=== PATIENT | male | born 1970 | race Caucasian/White ===

== ENCOUNTER 2019-01-04 16:28 | Emergency (ER) | payer OTHER ==
[~2019-01-04] VITALS: Ht 182.9 cm; Wt 97.5 kg
--- NOTE | 2019-01-04 16:32 | NUR ---
ED Nurse Note: Pt BIBA from the street due to ETOH, pt is from a rehab center. pt drank " a lot of whiskey", pt is asleep but easy to be awaken. answers questions appropriately. Vital signs stable at this time. Will cont to monitor.
[2019-01-04 16:42] VITALS: BP 122/74
[2019-01-04 17:17] LABS: BASOPHILS % (AUTO) 1.3 % (0.0-2.0); EOSINOPHILS % (AUTO) 1.8 % (0.0-3.0); HEMATOCRIT 43.2 % (42.0-52.0); HEMOGLOBIN 15.1 G/DL (14.2-18.0); LYMPHOCYTES % (AUTO) 34.9 % (20.0-45.0); MEAN CORPUSCULAR VOLUME 85 FL (80-99); MONOCYTES % (AUTO) 4.8 % (1.0-10.0); NEUTROPHILS % (AUTO) 57.3 % (45.0-75.0); PLATELET COUNT 298 K/UL (150-450); RED BLOOD COUNT 5.06 M/UL (4.70-6.10); RED CELL DISTRIBUTION WIDTH 10.6 % (11.6-14.8); WHITE BLOOD COUNT 6.7 K/UL (4.8-10.8)
[2019-01-04 17:28] LABS: ANION GAP 12 mmol/L (5-15); BLOOD UREA NITROGEN 13 mg/dL (7-18); CALCIUM 8.9 MG/DL (8.5-10.1); CARBON DIOXIDE 26 MMOL/L (21-32); CHLORIDE 104 MMOL/L (98-107); CREATININE 1.2 MG/DL (0.55-1.30); POTASSIUM 4.1 MMOL/L (3.5-5.1); SODIUM 142 MMOL/L (136-145)
[2019-01-04 17:39] LABS: ALANINE AMINOTRANSFERASE 27 U/L (12-78); ALBUMIN 4.3 G/DL (3.4-5.0); ALBUMIN/GLOBULIN RATIO 1.3 (1.0-2.7); ALKALINE PHOSPHATASE 94 U/L (46-116); ASPARTATE AMINO TRANSFERASE 29 U/L (15-37)
[2019-01-04 18:43] VITALS: BP 124/78
--- NOTE | 2019-01-04 19:17 | NUR ---
ED Nurse Note: Spoke with Tony at [facility] - the patient has been missing since yesterday, and according to Tony that means the pt quit the program. They will not except him back tonight, the patient will have to speak with administration, tomorrow. Addendum: 01/04/19 at 1940 by MSCHRAGE [facility]: [phone].
--- NOTE | 2019-01-04 19:35 | NUR ---
ER Nurse Note: Pt a&ox4, VSS, no signs of distress. Pt expresses pain and is asking for gabapentin; will inform ERMD. Pt arousable. Urine sent; awaiting result. Pt is pending placement. All safety measures met; will continue to montior.
--- NOTE | 2019-01-04 20:56 | NUR ---
ER Nurse Note: Pt expresssed pain and nauea; ERMD aware. Verbal orders recieved from ERMD for zofran and acetaminophen. Pt a&ox4, VSS. Meds given; tolerated well. Pt is pending placement All safety measures met; report given to MARY Summers for continuity of care.
--- NOTE | 2019-01-04 20:57 | NUR ---
ED Nurse Note: Received report from Garth /RN, Pt is coleen/andre 4. VSS, will cotinue to monitor.
--- NOTE | 2019-01-04 21:48 | Emergency Room Report ---
History of Present Illness General Chief Complaint: Alcohol Intoxication Source: Patient (Rosendo Mercado MD) Present Illness HPI 48-year-old male presents ED for evaluation. Brought in by EMS for alcohol intoxication. Found on street. Bystanders called 911. Patient states he lives in a sober living facility. Denies drug use. Denies SI or HI. Denies nausea or vomiting or abdominal pain. No other aggravating relieving factors. Denies any other associated symptoms (Rosendo Mercado MD) Allergies: Coded Allergies: No Known Allergies (Unverified , 01/04/19) Patient History Past Medical History: psych hx Past Surgical History: none Pertinent Family History: none Social History: Reports: alcohol use; Denies: smoking, drug use Immunizations: UTD Reviewed Nursing Documentation: PMH: Agreed; PSxH: Agreed (Rosendo Mercado MD) Nursing Documentation-PMH Past Medical History: No History, Except For History Of Psychiatric Problem: Yes - depression, alcohol abuse (Rosendo Mercado MD) Review of Systems All Other Systems: negative except mentioned in HPI (Rosendo Mercado MD) Physical Exam Vital Signs Date Time Temp Pulse Resp B/P (MAP) Pulse Ox O2 Delivery O2 Flow Rate FiO2 01/04/19 16:24 98.6 69 18 122/74 96 Room Air Sp02 EP Interpretation: reviewed, normal General Appearance: no apparent distress, alert, GCS 15, non-toxic Head: normocephalic, atraumatic Eyes: bilateral eye normal inspection, bilateral eye PERRL ENT: hearing grossly normal, normal pharynx, no angioedema, normal voice Neck: full range of motion, supple/symm/no masses Respiratory: chest non-tender, lungs clear, normal breath sounds, speaking full sentences Cardiovascular #1: regular rate, rhythm, no edema Cardiovascular #2: 2+ carotid (R), 2+ carotid (L), 2+ radial (R), 2+ radial (L) , 2+ dorsalis pedis (R), 2+ dorsalis pedis (L) Gastrointestinal: normal bowel sounds, non tender, soft, non-distended, no guarding, no rebound Rectal: deferred Genitourinary: normal inspection, no CVA tenderness Musculoskeletal: back normal, gait/station normal, normal range of motion, non- tender Neurologic: alert, oriented x3, responsive, motor strength/tone normal, sensory intact, speech normal Psychiatric: judgement/insight normal, memory normal, mood/affect normal, no suicidal/homicidal ideation Reflexes: 3+ bicep (R), 3+ bicep (L), 3+ tricep (R), 3+ tricep (L), 3+ knee (R) , 3+ knee (L) Skin: normal color, no rash, warm/dry, well hydrated Lymphatic: no adenopathy (Rosendo Mercado MD) Medical Decision Making Diagnostic Impression: Primary Impression: Acute alcoholic intoxication Qualified Codes: F10.929 - Alcohol use, unspecified with intoxication, unspecified Additional Impression: Suicidal ideation Labs Test 01/04/19 17:05 White Blood Count 6.7 K/UL (4.8-10.8) Red Blood Count 5.06 M/UL (4.70-6.10) Hemoglobin 15.1 G/DL (14.2-18.0) Hematocrit 43.2 % (42.0-52.0) Mean Corpuscular Volume 85 FL (80-99) Mean Corpuscular Hemoglobin 29.9 PG (27.0-31.0) Mean Corpuscular Hemoglobin Concent 35.0 G/DL (32.0-36.0) Red Cell Distribution Width 10.6 % (11.6-14.8) Platelet Count 298 K/UL (150-450) Mean Platelet Volume 6.4 FL (6.5-10.1) Neutrophils (%) (Auto) 57.3 % (45.0-75.0) Lymphocytes (%) (Auto) 34.9 % (20.0-45.0) Monocytes (%) (Auto) 4.8 % (1.0-10.0) Eosinophils (%) (Auto) 1.8 % (0.0-3.0) Basophils (%) (Auto) 1.3 % (0.0-2.0) Sodium Level 142 MMOL/L (136-145) Potassium Level 4.1 MMOL/L (3.5-5.1) Chloride Level 104 MMOL/L (98-107) Carbon Dioxide Level 26 MMOL/L (21-32) Anion Gap 12 mmol/L (5-15) Blood Urea Nitrogen 13 mg/dL (7-18) Creatinine 1.2 MG/DL (0.55-1.30) Estimat Glomerular Filtration Rate > 60 mL/min (>60) Glucose Level 83 MG/DL (74-106) Calcium Level 8.9 MG/DL (8.5-10.1) Total Bilirubin 1.0 MG/DL (0.2-1.0) Aspartate Amino Transf (AST/SGOT) 29 U/L (15-37) Alanine Aminotransferase (ALT/SGPT) 27 U/L (12-78) Alkaline Phosphatase 94 U/L (46-116) Total Protein 7.6 G/DL (6.4-8.2) Albumin 4.3 G/DL (3.4-5.0) Globulin 3.3 g/dL Albumin/Globulin Ratio 1.3 (1.0-2.7) Salicylates Level 2.8 ug/mL (2.8-20) Urine Opiates Screen Negative (NEGATIVE) Acetaminophen Level < 2 MCG/ML (10-30) Urine Barbiturates Screen Negative (NEGATIVE) Phencyclidine (PCP) Screen Negative (NEGATIVE) Urine Amphetamines Screen Negative (NEGATIVE) Urine Benzodiazepines Screen Negative (NEGATIVE) Urine Cocaine Screen Negative (NEGATIVE) Urine Marijuana (THC) Screen Negative (NEGATIVE) Serum Alcohol 130 mg/dL (Rosendo Mercado MD) ER Course Patient better but now c/o SI. Voluntary. Anniversary of patricia and her son' s . Plan to drink himself to . C/O feel ill. Requests Celexa, Gabapentin, Zofran and will give Ativan. Will repeat BAL. Treating symptoms and giving Celexa. Signed out to Dr. Vega. Labs Test 01/04/19 17:05 01/05/19 08:23 White Blood Count 6.7 K/UL (4.8-10.8) Red Blood Count 5.06 M/UL (4.70-6.10) Hemoglobin 15.1 G/DL (14.2-18.0) Hematocrit 43.2 % (42.0-52.0) Mean Corpuscular Volume 85 FL (80-99) Mean Corpuscular Hemoglobin 29.9 PG (27.0-31.0) Mean Corpuscular Hemoglobin Concent 35.0 G/DL (32.0-36.0) Red Cell Distribution Width 10.6 % (11.6-14.8) Platelet Count 298 K/UL (150-450) Mean Platelet Volume 6.4 FL (6.5-10.1) Neutrophils (%) (Auto) 57.3 % (45.0-75.0) Lymphocytes (%) (Auto) 34.9 % (20.0-45.0) Monocytes (%) (Auto) 4.8 % (1.0-10.0) Eosinophils (%) (Auto) 1.8 % (0.0-3.0) Basophils (%) (Auto) 1.3 % (0.0-2.0) Sodium Level 142 MMOL/L (136-145) Potassium Level 4.1 MMOL/L (3.5-5.1) Chloride Level 104 MMOL/L (98-107) Carbon Dioxide Level 26 MMOL/L (21-32) Anion Gap 12 mmol/L (5-15) Blood Urea Nitrogen 13 mg/dL (7-18) Creatinine 1.2 MG/DL (0.55-1.30) Estimat Glomerular Filtration Rate > 60 mL/min (>60) Glucose Level 83 MG/DL (74-106) Calcium Level 8.9 MG/DL (8.5-10.1) Total Bilirubin 1.0 MG/DL (0.2-1.0) Aspartate Amino Transf (AST/SGOT) 29 U/L (15-37) Alanine Aminotransferase (ALT/SGPT) 27 U/L (12-78) Alkaline Phosphatase 94 U/L (46-116) Total Protein 7.6 G/DL (6.4-8.2) Albumin 4.3 G/DL (3.4-5.0) Globulin 3.3 g/dL Albumin/Globulin Ratio 1.3 (1.0-2.7) Salicylates Level 2.8 ug/mL (2.8-20) Urine Opiates Screen Negative (NEGATIVE) Acetaminophen Level < 2 MCG/ML (10-30) Urine Barbiturates Screen Negative (NEGATIVE) Phencyclidine (PCP) Screen Negative (NEGATIVE) Urine Amphetamines Screen Negative (NEGATIVE) Urine Benzodiazepines Screen Negative (NEGATIVE) Urine Cocaine Screen Negative (NEGATIVE) Urine Marijuana (THC) Screen Negative (NEGATIVE) Serum Alcohol < 3 mg/dL (El Hastings MD) Last Vital Signs Date Time Temp Pulse Resp B/P (MAP) Pulse Ox O2 Delivery O2 Flow Rate FiO2 01/04/19 18:43 98.6 87 20 124/78 96 Room Air (Rosendo Mercado MD) Last Vital Signs Date Time Temp Pulse Resp B/P (MAP) Pulse Ox O2 Delivery O2 Flow Rate FiO2 01/05/19 14:11 98.7 65 18 105/91 100 Room Air Status: improved (El Hastings MD) Disposition: XFER TO PSYCH HOSP/UNIT Condition: Stable Referrals: NOT CHOSEN IPA/,REFERRING (PCP) Rosendo Mercado MD Jan 04, 2019 21:48 El Hastings MD Jan 05, 2019 06:31
[2019-01-04 22:56] VITALS: BP 128/76
[2019-01-05] MEDS ORDERED: LORazepam Inj 2mg/ml 1ml IV ONE (06:45)
--- NOTE | 2019-01-05 07:15 | NUR ---
HAND-OFF: Report given to Miguelina/RN for continue care. Pt is A/O X4. VSS.
--- NOTE | 2019-01-05 07:48 | NUR ---
ED Nurse Note: Removed patient's belongings and placed in locker #3.
--- NOTE | 2019-01-05 08:17 | NUR ---
ED Nurse Note: Provided breakfast tray. Patient tolerating oral intake without problem.
--- NOTE | 2019-01-05 08:29 | NUR ---
ED Nurse Note: Patient accepted at [facility] and requested repeat alcohol serum level. Blood sample drawn using 23g venipunture to the right hand. Patient tolerated the procedure at this time.
[2019-01-05] MEDS ORDERED: Citalopram Hydrobromide 10mg Tab ORAL SCH (09:00)
--- NOTE | 2019-01-05 09:02 | NUR ---
ED Nurse Note: Faxed dr's note and repeat alcohol level result to [facility].
--- NOTE | 2019-01-05 10:24 | NUR ---
ED Nurse Note: Spoke to Aquiles at [facility]. Will give us call back within 30min.
[2019-01-05 11:00] VITALS: BP 121/70
--- NOTE | 2019-01-05 11:19 | NUR ---
ED Nurse Note: Report given to MARY Bustillo. Patient sleeping in bed. Bed in lowest position.
--- NOTE | 2019-01-05 11:20 | NUR ---
ED Nurse Note: received report from RN Miguelina and assumed care, pt provided w/ lunch, pt vss, resp even and unlabored on RA, no changes in neuro, will cont monitor. continue to voice SI, but denies HI/VH/AH.
--- NOTE | 2019-01-05 12:35 | NUR ---
ED Nurse Note: pt states he takes gabapentin 1200mg tid for neuropathy in pt's hand, pt currently c/o chronic pain in his right hand, ERMD notified.
[2019-01-05] MEDS ORDERED: LORazepam 1mg tab ORAL ONE (12:45)
--- NOTE | 2019-01-05 13:21 | NUR ---
ED Nurse Note: report given to Julio manuel [place].
[2019-01-05 14:11] VITALS: BP 105/91
--- NOTE | 2019-01-05 14:15 | NUR ---
ED Nurse Note: ambulance personnel at the bedside, all belongings sent w/ ambulance personnel, pt vss, resp even and unlabored on RA, report given and endorsed care to ambulance staff.
== END 2019-01-05 13:30 | disposition home or self-care (01) ==
LOC: EDBD 16:28 → EMR 16:54
DX: F10.29 Alcohol dependence with unspecified alcohol-induced disorder (principal); R45.851 Suicidal ideations
CPT/HCPCS: 36415; 80053; 80307; 80329; 85025; 96361; 96374; 96375; 99284; J2405